=== PATIENT | male | born 1975 | race Two or more races ===

== ENCOUNTER → 2020-10-15 10:02 | Outpatient (BNVA) | payer OTHER, SELFPAY | PROVIDERS: Visit Provider Internal Medicine | DX: M71.521 Other bursitis, not elsewhere classified, right elbow (principal) | CPT/HCPCS: 73080; 99203 ==

== ENCOUNTER → 2020-10-19 15:27 | Outpatient (BNVA) | payer OTHER, SELFPAY | PROVIDERS: Visit Provider Physician Assistant | DX: M70.31 Other bursitis of elbow, right elbow (principal) | CPT/HCPCS: 99213 ==

== ENCOUNTER → 2022-09-01 11:15 | Outpatient (BNVA) | payer OTHER, SELFPAY | PROVIDERS: Visit Provider Internal Medicine | DX: S41.152A Open bite of left upper arm, initial encounter (principal); S50.01XA Contusion of right elbow, initial encounter; S70.01XA Contusion of right hip, initial encounter; S60.811A Abrasion of right wrist, initial encounter; W50.3XXA Accidental bite by another person, initial encounter | CPT/HCPCS: 90715; 99202 ==

== ENCOUNTER → 2023-04-12 09:49 | Outpatient (BNVA) | payer OTHER, SELFPAY | PROVIDERS: Visit Provider Physician Assistant Medical | DX: S00.93XA Contusion of unspecified part of head, initial encounter (principal); S16.1XXA Strain of muscle, fascia and tendon at neck level, initial encounter; S80.02XA Contusion of left knee, initial encounter; S80.01XA Contusion of right knee, initial encounter; Y04.2XXA Assault by strike against or bumped into by another person, initial encounter | CPT/HCPCS: 99203 ==